=== PATIENT | male | born 1970 | race Caucasian/White ===

== ENCOUNTER 2016-10-31 11:40 | Emergency (ER) | payer MEDICARE, MEDICAID ==
[2016-10-31 11:55] VITALS: TEMP 98.4; BMI 43.2
[2016-10-31] MEDS ORDERED: ONDANSETRON HCL 4 MG/2 ML VIAL IV ONE (12:29)
[2016-10-31] MEDS ORDERED: HYDROmorphone 1 MG INJECTION IV ONE ×2 (12:29→15:05)
[2016-10-31] MEDS ORDERED: NS 1,000 ML IV ONE (12:29)
[2016-10-31] MEDS ORDERED: Clindamycin 900 mg/D5W 50 ml 900 MG/50 ML IVB IV ONE (12:30)
[2016-10-31 12:43] LABS: AUTOMATED BASOPHIL 0.9 % (0-2); AUTOMATED EOSINOPHIL 0.7 % (0-5); AUTOMATED LYMPH 7.7 % (17-44); AUTOMATED MONOCYTE 5.9 % (3-10); AUTOMATED NEUTROPHIL 84.8 % (45-76); MPV 7.9 fL (7.4-10.4)
[2016-10-31 12:57] LABS: BLOOD UREA NITROGEN 14 MG/DL (9-20); CALCIUM 9.1 MG/DL (8.4-10.2); CALCULATED OSMOLALITY 268 MOs/Kg (270-290); CHLORIDE 97 mEq/L (98-107); CRP-QUANTITATIVE 13.2 mg/L (<10.0); GLUCOSE 189 MG/DL (70-99); SODIUM LEVEL 136 mEq/L (137-146); TOTAL PROTEIN 7.5 G/DL (6.3-8.2); URIC ACID 7.3 MG/DL (3.5-8.5)
--- NOTE | 2016-10-31 13:10 | EDPRACDOC ---
- General Information Chief Complaint: Wound Stated Complaint: RT HAND SWELLING Time Seen by Provider: 10/31/16 11:57 Information Source: Patient Mode of Arrival: Car Home Medications: Home Medications Amlodipine [Norvasc] 10 mg PO DAILY 04/16/15 Amitriptyline HCl 50 mg PO QHS 06/04/16 Lisinopril/Hydrochlorothiazide [Zestoretic 20-12.5 mg Tablet] 1 tab PO DAILY 01/14 Albuterol/Ipratropium Neb [Duoneb] 3 ml NEB Q6H #120 nebu 06/06/16 Duloxetine HCl [Cymbalta] 30 mg PO BID 07/04/16 Fluticasone/Vilanterol [Breo Ellipta 200-25 Mcg INH] 1 puff INH BID 07/04/16 Clindamycin [Cleocin] 150 mg PO Q6 #56 cap 10/31/16 Oxycodone Immediate Release [Oxycodone Immediate Release (OxyIR)] 5 mg PO Q6H PRN #20 tab 10/31/16 Allergies/Adverse Reactions: Allergies Allergy/AdvReac Type Severity Reaction Status Date / Time BEE STING Allergy Unknown Edema-Gener Uncoded 06/03/16 20:41 alized - History of Present Illness Onset: 3 days HPI: PT PRESENTS WITH REDNESS, SWELLING AND PAIN TO RIGHT HAND AND ARM FOR THE PAST 3 DAYS. STATES HE HAS HAD CELLULITIS IN THIS AREA IN THE PAST AND WAS ADMITTED TO [facility] FOR IV ANTIBIOTICS. Location: Reports: Right, Thumb Dominant Hand: Right Mechanism: Reports: Unknown Circumstances: Reports: Unknown Tetanus Up To Date?: No Associated Signs & Symptoms: Reports: None ED Past Medical History - History Reviewed Yes Nurses notes reviewed and agree except as marked - Patient Medical History Cardiac History: Reports: Hypertension, Congestive Heart Failure Respiratory History: Reports: COPD, Emphysema Musculoskeletal History: Reports: Arthritis, Gout Psychological History: Reports: Anxiety. Denies: Depression, Substance Use Disorder Surgical History: Reports: Other (SHOULDER, KNEE, BACK) - Family Medical History Denies: Diabetes (Adopted and doesnt know family history) - Social Medical History Smoking Status: Heavy tobacco smoker (5 or more cigarettes/day or daily pipe/ cigar) Social History: Denies: Substance Use Disorder EDM Review of Systems - Review of Systems ROS Negative Except as Marked: Yes All systems reviewed and were negative except as marked - Physical Exam Constitutional: Alert Oriented to: Time, Person, Place Last recorded Vital Signs: Last Vital Signs Temp 98.4 F 10/31/16 11:54 Pulse 108 10/31/16 11:54 Resp 18 10/31/16 11:54 BP 158/89 10/31/16 11:54 Pulse Ox 95 10/31/16 11:54 Oxygen Pulse Oxygen Saturation 95 O2 Device Oxygen Flow Rate Fraction of Inspired Oxygen ( FIO2) - HEENT Head: Normal ( normocephalic) Eye Exam: Normal (PERRL, EOMI, Sclera white) Oropharynx: Normal (Pharynx:Moist without exudate,Gums-no swelling) Nose: No Symptoms Reported (septum midline) Neck: Normal (FROM, trachea at midline) - Respiratory/Cardiovascular Respiratory: Normal - CTA (BBS clear to auscultation without adventitious sounds ) Cardiovascular: Tachycardia - GI Auscultation: Normal (NABS) Palpation: Normal (Soft,No rebound or guarding, non distended) Tenderness: Non tender Altman's Sign: Negative Rectal Exam: Deferred - Musculoskeletal Back: Normal (Non-Tender) Extremities: Normal (Normal tone, Pulses 2+ No cyanosis or edema, FROM) - Integumentary Skin: Normal, Warm, Dry Lymphatics: Normal (no adenopathy) - Neurologic Memory Impaired: Normal Motor Function: Normal (Normal tone, Pulses 2+ No cyanosis or edema, FROM) Cranial Nerve: Normal (CN II-X11 intact sensation, strength 5/5) Cerebellar: Normal Mood Description: Normal Perception: Normal ED Hand Problem Physical Exam - Musculoskeletal Hand: Swelling, Moderate Tenderness Wrist: Swelling, Moderate Tenderness Digit: Swelling, Moderate Tenderness Digit Strength: Normal Nail: Normal Nailbed: Normal Soft Tissue: Tender, Red, Swelling Distal Function/Circulation: Normal - Integumentary Skin: Normal, Swelling, Red Lymphatics: Normal - Differential Diagnosis Other - Results 10/31/16 12:36 10/31/16 12:36 WBC 14.3 xk/uL (3.8-10.8) H 10/31/16 12:36 RBC 5.21 xM/uL (4.70-6.10) 10/31/16 12:36 Hgb 15.9 g/dL (14.0-18.0) 10/31/16 12:36 Hct 47.5 % (42-52) 10/31/16 12:36 MCV 91 fL (80-94) 10/31/16 12:36 MCH 30.5 pg (27-32) 10/31/16 12:36 MCHC 33.5 g/dl (33-36) 10/31/16 12:36 RDW 14.8 % (11.5-14.5) H 10/31/16 12:36 Plt Count 309 xk/uL (130-400) 10/31/16 12:36 MPV 7.9 fL (7.4-10.4) 10/31/16 12:36 Neut % (Auto) 84.8 % (45-76) H 10/31/16 12:36 Lymph % (Auto) 7.7 % (17-44) L 10/31/16 12:36 Haines % (Auto) 5.9 % (3-10) 10/31/16 12:36 Eos % (Auto) 0.7 % (0-5) 10/31/16 12:36 Baso % (Auto) 0.9 % (0-2) 10/31/16 12:36 Absolute Neuts (auto) 12.01 xk/uL (1.7-8.2) H 10/31/16 12:36 Absolute Lymphs (auto) 1.00 xk/uL (0.65-4.75) 10/31/16 12:36 Sodium 136 mEq/L (137-146) L 10/31/16 12:36 Potassium 4.6 mEq/L (3.5-5.1) 10/31/16 12:36 Chloride 97 mEq/L (98-107) L 10/31/16 12:36 Carbon Dioxide 27 mMOL/L (22-33) 10/31/16 12:36 Anion Gap 17 mEq/L (8-16) H 10/31/16 12:36 BUN 14 MG/DL (9-20) 10/31/16 12:36 Creatinine 0.80 MG/DL (0.66-1.25) 10/31/16 12:36 Estimated GFR (MDRD) > 60 mL/min (>=60) 10/31/16 12:36 Glucose 189 MG/DL (70-99) H 10/31/16 12:36 Calculated Osmolality 268 MOs/Kg (270-290) L 10/31/16 12:36 Uric Acid 7.3 MG/DL (3.5-8.5) 10/31/16 12:36 Calcium 9.1 MG/DL (8.4-10.2) 10/31/16 12:36 Total Bilirubin 0.9 MG/DL (0.2-1.3) 10/31/16 12:36 AST 48 IU/L (17-59) 10/31/16 12:36 ALT 60 IU/L (21-72) 10/31/16 12:36 Alkaline Phosphatase 73 IU/L (38-126) 10/31/16 12:36 C-Reactive Prot, Quant 13.2 mg/L (<10.0) H 10/31/16 12:36 Total Protein 7.5 G/DL (6.3-8.2) 10/31/16 12:36 Albumin 4.4 G/DL (3.5-5.0) 10/31/16 12:36 Lab Results 10/31/16 10/31/16 12:36 12:36 WBC 14.3 H RBC 5.21 Hgb 15.9 Hct 47.5 MCV 91 MCH 30.5 MCHC 33.5 RDW 14.8 H Plt Count 309 MPV 7.9 Neut % (Auto) 84.8 H Lymph % (Auto) 7.7 L Haines % (Auto) 5.9 Eos % (Auto) 0.7 Baso % (Auto) 0.9 Absolute Neuts (auto) 12.01 H Absolute Lymphs (auto) 1.00 Sodium 136 L Potassium 4.6 Chloride 97 L Carbon Dioxide 27 Anion Gap 17 H BUN 14 Creatinine 0.80 Estimated GFR (MDRD) > 60 Glucose 189 H Calculated Osmolality 268 L Uric Acid 7.3 Calcium 9.1 Total Bilirubin 0.9 AST 48 ALT 60 Alkaline Phosphatase 73 C-Reactive Prot, Quant 13.2 H Total Protein 7.5 Albumin 4.4 Decision Time to Discharge: 16:03 - Departure Disposition: Home Condition: Stable Final Diagnosis: Cellulitis Qualifiers: Site of cellulitis: extremity Site of cellulitis of extremity: upper extremity Laterality: right Qualified Code(s): L03.113 - Cellulitis of right upper limb Instructions: Cellulitis (ED) Education/Counseling Given To: Patient Education/Counseling Given Regarding: Diagnosis, Treatment, Prognosis, Follow Up Referrals: Pb Durham MD [Primary Care Provider] - One Week Prescriptions: New Clindamycin [Cleocin] 150 mg PO Q6 #56 cap Oxycodone Immediate Release [Oxycodone Immediate Release (OxyIR)] 5 mg PO Q6H PRN #20 tab PRN Reason: Pain Continue Amlodipine [Norvasc] 10 mg PO DAILY Lisinopril/Hydrochlorothiazide [Zestoretic 20-12.5 mg Tablet] 1 tab PO DAILY Amitriptyline HCl 50 mg PO QHS Albuterol/Ipratropium Neb [Duoneb] 3 ml NEB Q6H #120 nebu Fluticasone/Vilanterol [Breo Ellipta 200-25 Mcg INH] 1 puff INH BID Duloxetine HCl [Cymbalta] 30 mg PO BID Discontinued Ketorolac Tromethamine [Toradol] 10 mg PO Q6H PRN #20 tab PRN Reason: Pain Oxycodone HCl/Acetaminophen [Percocet 5-325 mg Tablet] 1 - 2 tab PO Q4H PRN # 20 tab PRN Reason: Pain Prednisone [Sterapred 10 mg/6 day pack] 21 tab PO DIR #1 pack Additional Instructions: ICE AND ELEVATION IS VERY IMPORTANT. TAKE ALL ANTIBIOTICS PRESCRIBED. FOLLOW UP WITH PCP NEXT WEEK. RETURN TO THE ED FOR WORSENING SYMPTOMS OR CONCERNS.
--- NOTE | 2016-10-31 15:53 | DIRPT ---
CLINICAL DATA: Right upper extremity redness and swelling for 3 days, history of cellulitis EXAM: Right UPPER EXTREMITY VENOUS DOPPLER ULTRASOUND TECHNIQUE: Gaytan-scale sonography with graded compression, as well as color Doppler and duplex ultrasound were performed to evaluate the upper extremity deep venous system from the level of the subclavian vein and including the jugular, axillary, basilic, radial, ulnar and upper cephalic vein. Spectral Doppler was utilized to evaluate flow at rest and with distal augmentation maneuvers. COMPARISON: None. FINDINGS: Contralateral Subclavian Vein: Respiratory phasicity is normal and symmetric with the symptomatic side. No evidence of thrombus. Normal compressibility. Internal Jugular Vein: No evidence of thrombus. Normal compressibility, respiratory phasicity and response to augmentation. Subclavian Vein: No evidence of thrombus. Normal compressibility, respiratory phasicity and response to augmentation. Axillary Vein: No evidence of thrombus. Normal compressibility, respiratory phasicity and response to augmentation. Cephalic Vein: No evidence of thrombus. Normal compressibility, respiratory phasicity and response to augmentation. Basilic Vein: No evidence of thrombus. Normal compressibility, respiratory phasicity and response to augmentation. Brachial Veins: No evidence of thrombus. Normal compressibility, respiratory phasicity and response to augmentation. Radial Veins: No evidence of thrombus. Normal compressibility, respiratory phasicity and response to augmentation. Ulnar Veins: No evidence of thrombus. Normal compressibility, respiratory phasicity and response to augmentation. Venous Reflux: None visualized. Other Findings: None visualized. IMPRESSION: No evidence of deep venous thrombosis right upper extremity. Electronically Signed By: Guille Ureña M.D. On: 10/31/2016 15:50
[2016-10-31 16:19] VITALS: BP 148/78; PULSE 100
== END 2016-10-31 16:22 | disposition home or self-care (01) ==
LOC: EDMC 11:40
DX: L03.113 Cellulitis of right upper limb (principal)
CPT/HCPCS: 36415; 80053; 84550; 85025; 85651; 86140; 87040; 93971; 96361; 96365; 96375; 96376; 99284; J1170; J2405; J3490; S0077